=== PATIENT | male | born 1970 | race Hispanic/Latino ===

== ENCOUNTER 2017-06-28 18:42 | Inpatient (IN) | payer OTHER ==
[~2017-06-28] VITALS: Ht 167.6 cm; Wt 116.1 kg
[2017-06-28 19:36] LABS: APPEARANCE,URINE Clear (CLEAR); BILIRUBIN,URINE Negative (NEGATIVE); COLOR,URINE Dark Yellow (YELLOW); GLUCOSE, URINE (UA) >=1000 mg/dL (NEGATIVE); KETONES,URINE Negative (NEGATIVE); LEUKOCYTE ESTERASE ,URINE Negative (NEGATIVE); NITRATE,URINE Negative (NEGATIVE); OCCULT BLOOD,URINE Negative (NEGATIVE); PROTEIN,URINE Negative (NEGATIVE)
[2017-06-28 19:47] LABS: BACTERIA,URINE Rare /HPF (None Seen); MUCUS,URINE Moderate LPF (None Seen); RBC,URINE None Seen /HPF (0-1); SQUAMOUS EPITHELIAL CELL,UR 0-2 /LPF (0-2); WBC,URINE None Seen /HPF (0-1)
[2017-06-28] MEDS ORDERED: KETOROLAC TROMETHAMINE 30MG/ML ONE (19:52)
[2017-06-28 19:56] LABS: BASOPHILS % (AUTO) 0.8 % (0.0-5.0); EOSINOPHILS % (AUTO) 1.6 % (0.0-8.0); HEMATOCRIT 42.7 % (42-54); LYMPHOCYTES % (AUTO) 14.7 % (21.0-51.0); MEAN CORPUSCULAR HEMOGLOBIN 30.4 pg (27.0-33.0); MEAN CORPUSCULAR HGB CONC 34.8 g/dL (32.0-36.0); MEAN CORPUSCULAR VOLUME 87.2 fL (79-99); NEUTROPHILS % (AUTO) 75.9 % (40.0-77.0); PLATELET COUNT (AUTO) 161 K/uL (130-400); RED BLOOD CELL COUNT(AUTO) 4.89 MIL/uL (4.50-6.20); RED CELL DISTRIBUTION WIDTH 14.6 % (11.0-15.5); WHITE BLOOD COUNT (AUTO) 7.7 K/uL (4.8-10.8)
[2017-06-28 20:14] LABS: CREATININE 1.3 mg/dL (0.5-1.5); POTASSIUM 3.6 mmol/L (3.5-5.1)
[2017-06-28 20:15] LABS: INR 1.36 (0.85-1.15); PROTHROMBIN TIME 14.2 SEC (9.6-11.6)
[2017-06-28 20:18] LABS: ALBUMIN 3.3 g/dL (3.5-5.0); BILIRUBIN,DIRECT 0.2 mg/dL (0.0-0.3); TOTAL PROTEIN, SERUM 7.4 g/dL (6.0-8.3)
[2017-06-28 20:30] LABS: AMPHET/METH SCREEN,URINE NEGATIVE (NEGATIVE); BARBITURATE SCREEN, URINE NEGATIVE (NEGATIVE); BENZODIAZEPINES SCREEN,URINE NEGATIVE (NEGATIVE); CANNABINOID SCREEN,URINE NEGATIVE (NEGATIVE); COCAINE SCREEN,URINE NEGATIVE (NEGATIVE); OPIATE SCREEN,URINE NEGATIVE (NEGATIVE); PHENCYCLIDINE SCREEN,URINE NEGATIVE (NEGATIVE)
[2017-06-29] MEDS ORDERED: ENOXAPARIN SODIUM 30 MG/0.3 ML SQ ONE (01:13)
[2017-06-29] MEDS ORDERED: ENOXAPARIN SODIUM 100 MG/1 ML SQ ONE (01:13)
[2017-06-29] MEDS ORDERED: WARF7.5T23 PO (03:38)
[2017-06-29] MEDS ORDERED: WARF5TAB76 PO (03:38)
[2017-06-29] MEDS ORDERED: LOSA1TAB37 PO (03:38)
[2017-06-29] MEDS ORDERED: ACETAMINOPHEN 325 MG TAB PO PRN (03:45)
[2017-06-29] MEDS ORDERED: CLONIDINE HCL 0.1 MG TABLET PO PRN (03:45)
[2017-06-29] MEDS ORDERED: POTASSIUM CHLORIDE 20 MEQ ERTAB PO PRN (03:45)
[2017-06-29] MEDS ORDERED: POTASSIUM CHLORIDE 20MEQ/100ML 100 ML IV PRN (03:45)
[2017-06-29] MEDS ORDERED: POTASSIUM CHLORIDE 10% ELIXIR 20 MEQ/15 ML UDCUP PO PRN (03:45)
[2017-06-29] MEDS ORDERED: LACTULOSE 20 GM/30 ML UDCUP PO PRN (03:45)
[2017-06-29] MEDS ORDERED: ZOLPIDEM TARTRATE 5 MG TAB PO PRN (03:45)
[2017-06-29] MEDS ORDERED: NITROGLYCERIN 0.4 MG SL TAB SL PRN (03:45)
[2017-06-29 03:53] VITALS: BP 146/91
[2017-06-29 04:10] LABS: HEMATOCRIT 41.3 % (42-54); MEAN CORPUSCULAR HEMOGLOBIN 30.8 pg (27.0-33.0); MEAN CORPUSCULAR HGB CONC 35.1 g/dL (32.0-36.0); MEAN CORPUSCULAR VOLUME 87.6 fL (79-99); NUCLEATED RED BLOOD CELLS 0.1 % (0.0-0.19); PLATELET COUNT (AUTO) 155 K/uL (130-400); RED BLOOD CELL COUNT(AUTO) 4.71 MIL/uL (4.50-6.20); RED CELL DISTRIBUTION WIDTH 14.5 % (11.0-15.5); WHITE BLOOD COUNT (AUTO) 6.3 K/uL (4.8-10.8)
[2017-06-29 04:21] LABS: HEMOGLOBIN A1C 6.1 % (4.0-6.0)
[2017-06-29 04:26] LABS: CREATININE 1.2 mg/dL (0.5-1.5)
[2017-06-29 04:28] LABS: INR 1.52 (0.85-1.15); PROTHROMBIN TIME 15.8 SEC (9.6-11.6)
[2017-06-29 04:41] LABS: EOSINOPHILS % (MANUAL) 5 % (1-6); LYMPHOCYTES % (MANUAL) 43 % (22-44); MAN.DIFF COMMENT-IMPRESSION MANUAL DIFFERENTIAL; MONOCYTES % (MANUAL) 4 % (2-9); PLATELET MORPHOLOGY COMMENT ADEQUATE; SEGMENTED NEUTROPHILS % 48 % (40-70)
[2017-06-29 07:00] VITALS: BP 145/98
[2017-06-29] MEDS: ENOXAPARIN SODIUM 60 MG/0.6 ML SQ SCH ×2 (08:34→20:17)
[2017-06-29] MEDS ORDERED: ENOXAPARIN SODIUM 1 MG/KG SQ SCH (09:00)
[2017-06-29 11:00] VITALS: BP 139/101
[2017-06-29 16:19] VITALS: BP 141/93
[2017-06-29] MEDS: ACETAMINOPHEN 325 MG TAB PO PRN (18:04)
[2017-06-29] MEDS: WARFARIN SODIUM 7.5 MG TAB PO SCH (18:56)
[2017-06-29 19:00] VITALS: BP 139/91
[2017-06-30] VITALS (7 sets, daily range): BP systolic 117–155; BP diastolic 74–100
[2017-06-30 03:59] LABS: HEMATOCRIT 40.6 % (42-54); MEAN CORPUSCULAR HEMOGLOBIN 30.4 pg (27.0-33.0); MEAN CORPUSCULAR HGB CONC 34.9 g/dL (32.0-36.0); MEAN CORPUSCULAR VOLUME 87.2 fL (79-99); PLATELET COUNT (AUTO) 151 K/uL (130-400); RED BLOOD CELL COUNT(AUTO) 4.66 MIL/uL (4.50-6.20); RED CELL DISTRIBUTION WIDTH 14.4 % (11.0-15.5); WHITE BLOOD COUNT (AUTO) 5.4 K/uL (4.8-10.8)
[2017-06-30] MEDS: FOLIC ACID 1 MG TABLET PO SCH (08:52)
[2017-06-30] MEDS: POLYETHYLENE GLYCOL 3350 17 GM POWD.PACK PO SCH (08:53)
[2017-06-30] MEDS: ENOXAPARIN SODIUM 60 MG/0.6 ML SQ SCH ×2 (08:53→20:20)
[2017-06-30] MEDS: WARFARIN SODIUM 7.5 MG TAB PO SCH (16:00)
[2017-06-30] MEDS ORDERED: WARFARIN SODIUM 2.5 MG TAB ONE (17:31)
[2017-06-30] MEDS ORDERED: WARFARIN SODIUM 5 MG TAB ONE (17:32)
[2017-07-01 03:20] VITALS: BP 127/83
[2017-07-01 04:08] LABS: INR 1.51 (0.85-1.15); PROTHROMBIN TIME 15.7 SEC (9.6-11.6)
[2017-07-01 07:31] VITALS: BP 131/86
[2017-07-01] MEDS: POLYETHYLENE GLYCOL 3350 17 GM POWD.PACK PO SCH (08:43)
[2017-07-01] MEDS: FOLIC ACID 1 MG TABLET PO SCH (08:43)
[2017-07-01] MEDS: LOSARTAN/HYDROCHLOROTHIAZIDE 50-12.5MG TABLET PO SCH (08:43)
[2017-07-01] MEDS: ENOXAPARIN SODIUM 60 MG/0.6 ML SQ SCH ×2 (08:44→20:13)
[2017-07-01 11:14] VITALS: BP 136/91
[2017-07-01] MEDS ORDERED: WARFARIN SODIUM 10 MG TABLET PO SCH (16:00)
[2017-07-01] MEDS: WARFARIN SODIUM 7.5 MG TAB PO SCH (16:00)
[2017-07-01 16:16] VITALS: BP 140/93
[2017-07-01 19:41] VITALS: BP 123/83
[2017-07-01 23:33] VITALS: BP 132/77
[2017-07-02 03:09] VITALS: BP 107/75
[2017-07-02 04:09] LABS: INR 1.8 (0.85-1.15); PROTHROMBIN TIME 18.7 SEC (9.6-11.6)
[2017-07-02 08:00] VITALS: BP 116/83
[2017-07-02] MEDS: POLYETHYLENE GLYCOL 3350 17 GM POWD.PACK PO SCH (10:19)
[2017-07-02] MEDS: FOLIC ACID 1 MG TABLET PO SCH (10:19)
[2017-07-02] MEDS: LOSARTAN/HYDROCHLOROTHIAZIDE 50-12.5MG TABLET PO SCH (10:19)
[2017-07-02] MEDS: ENOXAPARIN SODIUM 60 MG/0.6 ML SQ SCH ×2 (10:20→20:11)
[2017-07-02 11:35] VITALS: BP 141/77
[2017-07-02] MEDS: WARFARIN SODIUM 7.5 MG TAB PO SCH (13:12)
[2017-07-02 16:00] VITALS: BP 132/92
[2017-07-02] MEDS ORDERED: WARFARIN SODIUM 10 MG TABLET PO SCH (16:00)
[2017-07-02 19:33] VITALS: BP 123/75
[2017-07-02] MEDS: ACETAMINOPHEN 325 MG TAB PO PRN (20:11)
[2017-07-02 23:37] VITALS: BP 126/88
[2017-07-03 03:57] VITALS: BP 132/69
[2017-07-03 04:57] LABS: INR 2.4 (0.85-1.15); PROTHROMBIN TIME 24.8 SEC (9.6-11.6)
[2017-07-03 08:00] VITALS: BP 137/97
[2017-07-03] MEDS: ENOXAPARIN SODIUM 60 MG/0.6 ML SQ SCH (08:38)
[2017-07-03] MEDS: FOLIC ACID 1 MG TABLET PO SCH (10:10)
[2017-07-03] MEDS: LOSARTAN/HYDROCHLOROTHIAZIDE 50-12.5MG TABLET PO SCH (10:10)
[2017-07-03] MEDS: POLYETHYLENE GLYCOL 3350 17 GM POWD.PACK PO SCH (10:11)
[2017-07-03 11:19] VITALS: BP 125/79
== END 2017-07-03 13:00 | disposition home or self-care (01) | DRG 300 ==
LOC: EDH 18:42 → EDHIP 06-29 01:03 → INTOOBSV 06-29 01:03 → OBSVTOIN 06-29 01:03 → 2AH 06-29 03:18
PROVIDERS: ADMIT Family Medicine; ATTEND Family Medicine
DX: I82.403 Acute embolism and thrombosis of unspecified deep veins of lower extremity, bilateral (principal); D68.59 Other primary thrombophilia; Z68.41 Body mass index [BMI] 40.0-44.9, adult; E66.9 Obesity, unspecified; E78.5 Hyperlipidemia, unspecified; I10 Essential (primary) hypertension; K59.00 Constipation, unspecified; R73.9 Hyperglycemia, unspecified; Z79.01 Long term (current) use of anticoagulants; Z91.19 Patient's noncompliance with other medical treatment and regimen; Z91.14 Patient's other noncompliance with medication regimen; Z86.718 Personal history of other venous thrombosis and embolism; Z88.8 Allergy status to other drugs, medicaments and biological substances; Z84.89 Family history of other specified conditions; Z82.49 Family history of ischemic heart disease and other diseases of the circulatory system
CPT/HCPCS: 36415; 71046; 74176; 78580; 80048; 80076; 80305; 81001; 83036; 83690; 85025; 85027; 85610; 85730; 93970; A9540; J1650; J1885

== ENCOUNTER 2019-02-17 15:49 | Inpatient (IN) | payer OTHER ==
[~2019-02-17] VITALS: Ht 167.6 cm; Wt 114.1 kg
[~2019-02-17 15:49] MED LIST: LOSA1TAB37 PO; WARF5TAB76 PO; WARF7.5T23 PO
[2019-02-17 16:50] LABS: CREATININE 1.2 mg/dL (0.5-1.5); POTASSIUM 3.6 mmol/L (3.5-5.1)
[2019-02-17 16:53] LABS: INR 2.69 (0.85-1.15); PROTHROMBIN TIME 27.2 SEC (9.6-11.6)
[2019-02-17 16:59] LABS: BASOPHILS % (AUTO) 0.6 % (0.0-5.0); EOSINOPHILS % (AUTO) 3.2 % (0.0-8.0); LYMPHOCYTES % (AUTO) 19.1 % (21.0-51.0); MEAN CORPUSCULAR HEMOGLOBIN 31.1 pg (27.0-33.0); MEAN CORPUSCULAR HGB CONC 35.4 g/dL (32.0-36.0); MEAN CORPUSCULAR VOLUME 87.9 fL (79-99); MONOCYTES % (AUTO) 6.8 % (3.0-13.0); NEUTROPHILS % (AUTO) 70.3 % (40.0-77.0); NUCLEATED RED BLOOD CELLS 0.1 % (0.0-0.19); PLATELET COUNT (AUTO) 141 K/uL (130-400); RED BLOOD CELL COUNT(AUTO) 4.55 MIL/uL (4.50-6.20); RED CELL DISTRIBUTION WIDTH 14.6 % (11.0-15.5); WHITE BLOOD COUNT (AUTO) 6.5 K/uL (4.8-10.8)
[2019-02-17 17:02] LABS: ALBUMIN 3.7 g/dL (3.5-5.0); BILIRUBIN,TOTAL 0.9 mg/dL (0.2-1.0); TOTAL PROTEIN, SERUM 7.8 g/dL (6.0-8.3)
[2019-02-17] MEDS ORDERED: ONDANSETRON HCL 4 MG/2 ML VIAL IV PRN (20:45)
[2019-02-17] MEDS ORDERED: HYDRALAZINE HCL 20 MG/ML VIAL IV PRN (20:45)
[2019-02-17] MEDS ORDERED: ACETAMINOPHEN 325 MG TAB PO PRN ×2 (20:45)
[2019-02-17] MEDS: FAMOTIDINE/PF 20 MG/2 ML VIAL IV SCH (21:00)
[2019-02-17 22:50] LABS: HEMATOCRIT 40.4 % (42-54)
[2019-02-17] MEDS ORDERED: FAMOTIDINE/PF 20 MG/2 ML VIAL IV ONE (22:53)
[2019-02-17 23:35] VITALS: BP 126/72
[2019-02-17] MEDS ORDERED: WARF4TAB72 PO (23:45)
[2019-02-17] MEDS ORDERED: METF-444 PO (23:45)
[2019-02-18] VITALS (19 sets, daily range): BP systolic 108–151; BP diastolic 56–90
[2019-02-18] MEDS ORDERED: PANTOPRAZOLE SODIUM 80 MG in SODIUM CHLORIDE 0.9% 100 ML IV SCH (04:45)
[2019-02-18 05:31] LABS: HEMATOCRIT 39.3 % (42-54)
[2019-02-18 05:49] LABS: INR 2.45 (0.85-1.15); PROTHROMBIN TIME 24.9 SEC (9.6-11.6)
[2019-02-18] MEDS: FAMOTIDINE/PF 20 MG/2 ML VIAL IV SCH ×2 (09:00→21:00)
--- NOTE | 2019-02-18 12:37 | NUR ---
DC PLAN PER PATIENT HE IS INDEPENDENT, LIVES WITH MOTHER, NO PROVIDER, NO MEDICAL EQUIPMENT, AND FEELS SAFE TO RETURN HOME. Addendum: 02/18/19 at 1239 by JEN DE LEON RN CM Amended: Links added.
[2019-02-18] MEDS ORDERED: FENTANYL CITRATE PF 50 MCG/1 ML 2ML VIAL ONE (13:56)
[2019-02-18] MEDS ORDERED: MIDAZOLAM HCL 1 MG/ML 2ML VIAL ONE ×2 (13:56→14:01)
--- NOTE | 2019-02-18 13:56 | NUR ---
CURRENT Q 8 TIMED SCHEDULED AT 1252 H& H CANCELLED DUE TO PATIENT IN PROCEDURE .
[2019-02-18] MEDS ORDERED: PROPOFOL 10 MG/ML 20ML VIAL IV ONE (14:01)
[2019-02-18] MEDS ORDERED: MAGNESIUM CITRATE 296 ML SOLUTION PO SCH (16:45)
[2019-02-18] MEDS ORDERED: PEG 3350/NA SULF,BICARB,CL/KCL 4000 ML SOLN PO SCH (16:45)
[2019-02-18] MEDS ORDERED: LACTULOSE 20 GM/30 ML UDCUP PO SCH (16:45)
--- NOTE | 2019-02-18 21:45 | NUR ---
ENEMA ADMINISTERED AT THIS TIME PER MD ORDER IN PREP FOR COLONOSCOPY, PT TOLERATED WELL.
[2019-02-19] VITALS (20 sets, daily range): BP systolic 122–168; BP diastolic 69–95
[2019-02-19 05:33] LABS: BASOPHILS % (AUTO) 0.7 % (0.0-5.0); EOSINOPHILS % (AUTO) 6.5 % (0.0-8.0); HEMATOCRIT 40.1 % (42-54); LYMPHOCYTES % (AUTO) 21.5 % (21.0-51.0); MEAN CORPUSCULAR HEMOGLOBIN 31.2 pg (27.0-33.0); MEAN CORPUSCULAR HGB CONC 35.4 g/dL (32.0-36.0); MEAN CORPUSCULAR VOLUME 88.3 fL (79-99); MONOCYTES % (AUTO) 8.5 % (3.0-13.0); NEUTROPHILS % (AUTO) 62.8 % (40.0-77.0); NUCLEATED RED BLOOD CELLS 0.1 % (0.0-0.19); PLATELET COUNT (AUTO) 127 K/uL (130-400); RED BLOOD CELL COUNT(AUTO) 4.54 MIL/uL (4.50-6.20); RED CELL DISTRIBUTION WIDTH 14.7 % (11.0-15.5)
--- NOTE | 2019-02-19 06:13 | NUR ---
ENEMA ADMINISTERED AT THIS TIME PER MD ORDER IN PREP FOR COLONOSCOPY, PT TOLERATED WELL.
[2019-02-19] MEDS: FAMOTIDINE/PF 20 MG/2 ML VIAL IV SCH (09:00)
[2019-02-19] MEDS: CYANOCOBALAMIN (VITAMIN B-12) 1,000 MCG TABLET PO SCH ×2 (09:00→19:01)
[2019-02-19] MEDS: FOLIC ACID 1 MG TABLET PO SCH ×2 (09:00→19:01)
[2019-02-19] MEDS ORDERED: CYAN-52 PO (16:51)
[2019-02-19] MEDS ORDERED: FOLI1 PO (16:51)
[2019-02-19] MEDS ORDERED: PANT40TA25 PO (17:08)
== END 2019-02-19 19:09 | disposition home or self-care (01) | DRG 393 ==
LOC: EDH 15:49 → EDHIP 20:45 → 4BH 23:37
PROVIDERS: ADMIT Internal Medicine; ATTEND Internal Medicine
PROC: 0DJ08ZZ Inspection of Upper Intestinal Tract, Via Natural or Artificial Opening Endoscopic (ICD-10-PCS; 2019-02-18)
PROC: 0DBM8ZZ Excision of Descending Colon, Via Natural or Artificial Opening Endoscopic (ICD-10-PCS; principal; 2019-02-19)
DX: D12.4 Benign neoplasm of descending colon (principal); K22.11 Ulcer of esophagus with bleeding; K57.31 Diverticulosis of large intestine without perforation or abscess with bleeding; K29.01 Acute gastritis with bleeding; K29.81 Duodenitis with bleeding; D68.51 Activated protein C resistance; D62 Acute posthemorrhagic anemia; D68.2 Hereditary deficiency of other clotting factors; K21.0 Gastro-esophageal reflux disease with esophagitis; E78.5 Hyperlipidemia, unspecified; N18.9 Chronic kidney disease, unspecified; I12.9 Hypertensive chronic kidney disease with stage 1 through stage 4 chronic kidney disease, or unspecified chronic kidney disease; I25.10 Atherosclerotic heart disease of native coronary artery without angina pectoris; E11.22 Type 2 diabetes mellitus with diabetic chronic kidney disease; J44.9 Chronic obstructive pulmonary disease, unspecified; K44.9 Diaphragmatic hernia without obstruction or gangrene; K64.0 First degree hemorrhoids; T45.515A Adverse effect of anticoagulants, initial encounter; Z86.718 Personal history of other venous thrombosis and embolism; Z79.01 Long term (current) use of anticoagulants; Z82.49 Family history of ischemic heart disease and other diseases of the circulatory system; Z80.0 Family history of malignant neoplasm of digestive organs; Z83.3 Family history of diabetes mellitus; Z82.5 Family history of asthma and other chronic lower respiratory diseases; Z82.3 Family history of stroke; Z91.041 Radiographic dye allergy status
CPT/HCPCS: 36415; 43235; 45385; 80053; 82270; 82948; 84484; 85014; 85018; 85025; 85610; 85730; 86850; 86900; 86901; 88305; 93971; A4606; C9113; G0378; J2250; J2704; J3010; J3490

== ENCOUNTER 2024-06-16 17:16 | Emergency (ER) | payer BC, OTHER ==
[~2024-06-16] VITALS: Ht 167.6 cm; Wt 115.7 kg
[~2024-06-16 17:16] MED LIST changes: +CYAN-52 PO; +FOLI1 PO; +METF-444 PO; +PANT40TA55 PO; -WARF5TAB76 PO; -WARF7.5T23 PO
[2024-06-16 17:47] VITALS: BP 156/101; PULSE 80; RESP 16; TEMP 97.8
[2024-06-16] MEDS: DiphenhydrAMINE HCL 25 MG CAPSULE PO ONE (18:00)
[2024-06-16] MEDS ORDERED: HYDR28CR51 TP (18:26)
--- NOTE | 2024-06-16 18:27 | ERN ---
ED Note History of Present Illness Stated Complaint: RASH Chief Complaint: Skin Rash/Abscess Time Seen by MD: 17:20 Time Seen by Midlevel: 17:20 Dictation: The patient is a 54-year-old male with a history of DVT, hypertension who presents to the emergency department with complaints of generalized rash onset May 30. Patient reports rashes itching. Reports he has not follow up with his doctor for this rash. Denies any fevers. Allergies: Coded Allergies: Iodine and Iodide Containing Produc (Unverified Allergy, Severe, 06/29/17) vomiting, sob Home Meds Active Scripts Hydrocortisone (Hydrocortisone 2.5% 28Gm) 2.5 % Cream.gm., 1 APPL TP BID for 5 Days, #60 GM 0 Refills apply to affected area(s) Prov:MARJORIE SEAMAN RN RECRUITMENT 06/16/24 Pantoprazole Sodium (Protonix) 40 Mg Ectab, 40 MG PO DAILY for 15 Days, #15 TAB. EC Prov:ZEE WELCH NP 02/19/19 Folic Acid (Folvite) 1 Mg Tab, 1 MG PO DAILY for 15 Days, #15 TAB Prov:ZEE WELCH NP 02/19/19 Cyanocobalamin (Vitamin B-12) (Vitamin B-12) 1,000 Mcg Tablet, 1000 MCG PO DAILY for 15 Days, #15 TAB Prov:ZEE WELCH PACU NURSE 02/19/19 Reported Medications Metformin HCl (Metformin HCl) 500 Mg Tablet, 500 MG PO AM, TAB 02/17/19 Losartan/Hydrochlorothiazide (Losartan-Hctz 50-12.5 mg Tab) 1 Each Tablet, 1 EACH PO DAILY, TAB 06/29/17 Past Medical History Past Medical History: Diabetes-Type II, DVT, Hypertension Surgical History: None RN Note Reviewed/Agreed w/PFSH: Yes Review of System Dictation Constitutional: Negative for fever,chills, and weight loss Eyes: Negative for injury, pain,redness, and discharge ENT: Negative for injury,pain or swelling Cardiovascular: Negative for chest pain, palpitations, and edema Respiratory: Negative for shortness of breath, cough, and wheezing, Abdomen/GI: Negative for abdominal pain, nausea, vomiting, diarrhea, and constipation Back: Negative for injury and pain : Negative for injury, bleeding and discharge MS/Extremity: Negative for injury and deformity Skin: Negative for discoloration positive for rash Neuro: Negative for headache, weakness, numbness, tingling, and seizure Psych: Negative for suicide ideation, homicidal ideation, and hallucinations Initial Vital Sign VS Vital Signs Date Time Temp Pulse Resp B/P (MAP) Pulse Ox O2 Delivery O2 Flow Rate FiO2 06/16/24 17:47 97.9 80 16 156/101 96 Room Air 0 Physical Exam Dictation Vital Signs reviewed General Appearance: Alert, oriented x 3, no acute distress, well developed, nourished. Head and Face: non-traumatic. Eyes: PERRL, pink conjunctivas, eyelid no trauma, anterior chamber with arcus senilis. Ears: Pinnas intact and no signs of trauma or erythema ear canals clear and no discharge TM no erythema Nose: No discharge, no bleeding. Oropharynx: Mouth normal, tongue pink. pharynx clear,no erythema, tonsils no exudates, no abscesses noted, mucous membrane moist Neck: Supple, non-tender, no thyromegaly, no masses, no JVD, no bruits Breast:Deferred Chest:No tenderness, no crepitus, no paradoxical movement, no retractions Lungs:Clear, well-ventilated, symmetric, no rales, no wheezing, no rhonchi, no stridor, good breath sounds bilaterally Heart: Regular rate, regular rhythm, no murmur, no gallops Vascular: no peripheral edema, Abdomen: Soft, positive bowel sounds, nondistended, no guarding, nontender, no rebound, no masses no hepatomegaly, no splenomegaly, no Daniel's sign, no hernias. Rectal: Deferred Genital: Deferred Neurological: Normal speech, motor function intact, sensory function intact Musculoskeletal: Neck nontender, full range of motion, back nontender, full range of motion, Extremities: nontender, full range of motion Skin: Color pink, no turgor,no lacerations, no abrasions, no contusions. Small erythremic papules noted to left arm, left leg, dry skin, no wounds noted to hence or palms of hands Lymphatic: Deferred Results (Laboratory/Radiology) Labs Reviewed?: Yes ED Course ED Course Orders Procedure Category Date Status Time Diphenhydramine Hcl PHA 06/16/24 Complete (Benadryl Cap) 18:00 Current Medications Medications (Trade) Dose Ordered Sig/Raven Route PRN Reason Start Time Stop Time Status Last Admin Dose Admin Diphenhydramine HCl (BENAdryl CAP) 25 mg ONCE ONCE PO 06/16/24 18:00 06/16/24 18:03 DC Vital Signs Date Time Temp Pulse Resp B/P (MAP) Pulse Ox O2 Delivery O2 Flow Rate FiO2 06/16/24 17:47 97.9 80 16 156/101 96 Room Air 0 Medical Decision Making MDM The patient is a 54-year-old male with a history of DVT, hypertension who presents to the emergency department with complaints of generalized rash onset May 30. Patient reports rashes itching. Reports he has not follow up with his doctor for this rash. Denies any fevers. Patient with dry itchy skin, small erythremic papules. Patient's rash consistent with a eczema. Will treat patient with the topical corticosteroids. Patient in no acute distress, nontoxic appearance will be discharged to follow up with PCP. Differential diagnosis: Atopic dermatitis, contact dermatitis, allergic reaction, cellulitis Need for hospitalization: Patient does not meet criteria for hospitalization. There are no social concerns with this patient. DX & DISP Disposition: Discharge Departure Impression: Primary Impression: Atopic dermatitis Condition: Stable Scripts Hydrocortisone (Hydrocortisone 2.5% 28Gm) 2.5 % Cream.gm. 1 APPL TP BID for 5 Days, #60 GM 0 Refills apply to affected area(s) Prov: MARJORIE SEAMAN RN RECRUITMENT 06/16/24 Additional Instructions: Please take medications as prescribed. Avoid any irritants the peg driver skin in make itchiness worse. You may apply the creams which have low water content or ointments like petroleum jelly. Use emollient creams and moisturizers. f symptoms do not improve you might need to be referral to Dermatology by your PCP. Please follow up with PCP. FOLLOW-UP WITH PRIMARY CARE PROVIDER IN 1 TO 2 DAYS. TAKE MEDICATIONS DIRECTED HERE IN THE EMERGENCY ROOM. OKAY TO CONTINUE HOME MEDICATIONS UNLESS OTHERWISE DISCUSSED DURING YOUR VISIT IN THE EMERGENCY ROOM TODAY. RETURN TO YOUR NEAREST EMERGENCY ROOM IF SYMPTOMS WORSEN OR IF THERE IS NO IMPROVEMENT. CALL 911 IF YOU NEED IMMEDIATE ASSISTANCE. TAKE TYLENOL OR MOTRIN [id number] NEEDED AND IF NO CONTRAINDICATIONS ARE PRESENT. INCREASE ORAL HYDRATION. A WOUND CULTURE OR URINE CULTURE WAS ORDERED HERE IN THE EMERGENCY ROOM DEPARTMENT PLEASE FOLLOW-UP WITH PRIMARY CARE PROVIDER AND ADVISE THEM TO GET REPEAT PORTS FROM OUR FACILITY. IF YOU HAD ANY MORGAN WRAP/SPLINTS THAT WERE APPLIED HERE, PLEASE DO NOT REMOVE THEM UNTIL YOU SEE YOUR PRIMARY CARE OR SPECIALTY. Referrals: AP DUMONT DO (PCP) Time of Disposition: 18:53 I have reviewed the case, and I agree with, Diagnosis and Plan MARJORIE SEAMAN RN RECRUITMENT Jun 16, 2024 18:27
--- NOTE | 2024-06-16 20:22 | NUR ---
CALLED FOR PT TO MEDICATE; NO RESPONSE; PT NOT FOUND IN LOBBY.
--- NOTE | 2024-06-16 20:45 | NUR ---
patient called in er lobby, left without seeing nursing staff, left without medications/discharge instructions
== END 2024-06-16 20:47 | disposition home or self-care (01) ==
LOC: EDH 17:16
DX: L20.9 Atopic dermatitis, unspecified (principal); E11.9 Type 2 diabetes mellitus without complications; I10 Essential (primary) hypertension; Z79.899 Other long term (current) drug therapy; Z86.718 Personal history of other venous thrombosis and embolism; Z88.8 Allergy status to other drugs, medicaments and biological substances; Z91.041 Radiographic dye allergy status
CPT/HCPCS: 99282; Q0163